=== PATIENT | female | born 1960 | race Two or more races ===

== ENCOUNTER → 2024-02-28 | Outpatient (CLI) | payer BC, SELFPAY ==
[2024-02-28 09:33] LABS: Misc Send Out* See Sep Rpt
== END | disposition home or self-care (01) ==
PROVIDERS: PCP Family Medicine; Referring Provider Internal Medicine Hematology & Oncology; Visit Provider Internal Medicine Hematology & Oncology
DX: C50.911 Malignant neoplasm of unspecified site of right female breast (principal)

== ENCOUNTER 2024-07-17 11:31 | Outpatient (RCR) | payer BC, SELFPAY ==
--- NOTE | 2024-07-18 05:40 | CTCFLWUP_ITS ---
Patient: MARY LIU : 1960 Page 5 of 6 FOLLOW UP NOTE DATE OF SERVICE: 07/17/2024 NAME: MARY LIU ACCOUNT: [id number] : 1960 AGE: 64 INTERVAL HISTORY: Patient is doing well. She is here to discuss her antiendocrine therapy. ONCOLOGY HISTORY: DIAGNOSIS: Right breast invasive ductal carcinoma ER/MI positive HER2 negative DATE OF DIAGNOSIS: 01/22/2024 STAGE/TNM: T2 N0 M0 stage I right breast invasive ductal carcinoma Oncotype Dx 6 TREATMENT HISTORY: Care?Plan Start?Date Cycle Day Intent HISTORY OF PRESENT ILLNESS: Mary Liu is a 64-year-old ENG speaking Other female with history of obesity as well as depre ssion has the following oncology history. August 2023: Patient felt a lump in the right breast. 09/28/2023: Right breast ultrasound? 09/28/2023: Ms. Liu had bilateral diagnostic mammograms done 01/22/2024: Ms. Liu had 2 nodules biopsied from the right breast with ultrasound guidance Lymphovascular invasion: not seen Pathologic TNM classi?cation: pT2 Tumor >20 mm but [address] dimension psnNO No regional lymph node metastasis identi?ed Breast prognostic panel results: Estro gen receptor: positive, 3+. >95? 9 Progesterone receptor: positive, 2+, HER-Zlneu Inmunohistochemistr y Result: 2+, equivocal (Her2-Low). FISH [id number] is nega?ve. Ki-67: 10% 03/19/2024: Ms. 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 Tobacco?Use:?Denies ETOH?Use:?Denies Drug?Note:?Denies Social?History?Note:?Lives?with? 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 control medication x 10 yrs :?0 Live?Births:?0 MEDICATIONS: 1. Arimidex - 1 mg 1 tab Daily 2. sertraline - 50 mg 1 tab Daily Medications Last Reconciled by Marisabel Barrett MA on 07/17/2024 ALLERGIES: Bee stings REVIEW OF SYSTEMS: A complete 14-point review of systems was performed and is negative except as noted in interval histo ry. PHYSICAL EXAMINATION: VITAL SIGNS: PAIN: 0 - No pain ECOG Performance Status: 0 - Asymptomatic and fully active GENERAL APPEARANCE: Appears well, in no apparent distress, appropriately interactive. HEENT: Normocephalic, no temporal wasting, normal conjunctiva, no scleral icterus, normal hearing, li ps without lesions, neck normal range of motion. CARDIOVASCULAR: Not assessed. PULMONARY: Normal respiratory effort, no respiratory distress or use of accessory muscles, speaking i n full sentences, no tachypnea. EXTREMITIES: No pedal edema or cyanosis. SKIN: Normal skin appearance. NEUROLOGIC: Alert and oriented x4. PSHYCHIATRIC: Appropriate affect, mood normal, behavior normal, intact thought and speech. LABORATORY DATA: I have personally reviewed and interpreted each of Ms. Liu?s relevant lab tests, abnormal fin dings are below: Date ASSESSMENT/PLAN: #1 stage IIa (pT2 snN0, M0) ER positive, MI positive HER2/yanick IHC 2+, equal vocal, HER2 2+ on IHC neg ative by FISH single focus moderately differentiated invasive ductal carcinoma of the right breast. S/p simple mastectomy and sentinel lymph node biopsy on 03/19/2024 ER positive, MI positive, HER2/yanick negative, Ki-67 low (10%) low-grade invasive ductal carcinoma of t he right breast. S/p ultrasound-guided biopsy (01/22/2024) Strong family history of breast cancers. Patient's 2 sisters had breast cancers. Oncotype DX shows score of 6. Distance recurrence at 9 years with antiendocrine therapy alone is 3% and benefit of chemotherapy is less than 1% BRCA 1 and 2 as well as [facility] cancer test. --Results are negative for any hereditary cancer s Other chronic condition reviewed during this visit and patient advised to follow-up with the primary care obesity Depression CBC and CMP ordered for today CBC CMP RETURN TO CLINIC: 6 months BILLING AND COMPLIANCE: I reviewed external records from providers outside my specialty as summarized above. I spent a total of 50 minutes on this patient?s care on the day of their visit excluding time spent related to any bi lled procedures. This time includes time spent with the patient as well as time spent documenting in the medical record, reviewing patients records and tests, obtaining history, placing orders, communi cating with other healthcare professionals, counseling the patient, family or caregiver, and/or care coordination for the diagnoses above. Electronically Signed by: Didier Morales MD T: 5:38 AM CC: PCP: Blaine Lee Referring: Blaine Lee This document was completed utilizing speech recognition software. Grammatical errors, random word in sertions, pronoun errors, and incomplete sentences are an occasional consequence of this system due t o software limitations, ambient noise, and hardware issues. Any formal questions or concerns about th e content, text or information contained within the body of this dictation should be directly address ed to the provider for clarification.
== END 2024-07-26 23:59 | disposition home or self-care (01) ==
LOC: SCTC 11:31
PROVIDERS: PCP Family Medicine; Referring Provider Family Medicine; Visit Provider Internal Medicine Hematology & Oncology
DX: C50.111 Malignant neoplasm of central portion of right female breast (principal); Z17.0 Estrogen receptor positive status [ER+]; Z17.21 Progesterone receptor positive status; Z17.32 Human epidermal growth factor receptor 2 negative status; Z90.11 Acquired absence of right breast and nipple; Z80.3 Family history of malignant neoplasm of breast; Z79.811 Long term (current) use of aromatase inhibitors
CPT/HCPCS: 99212; G0463

== ENCOUNTER → 2024-08-16 | Outpatient (CLI) | payer BC, SELFPAY ==
[2024-08-16 11:04] LABS: Collection Type, Urine Clean Catch; WBC,Urine 0 /hpf (0-5)
[2024-08-16 11:20] LABS: Basophils % (Auto) 0 % (0-2.5); Eosinophils # (Auto) 0.1 Thou/mm3 (0.0-0.5); Eosinophils % (Auto) 1 % (0-10); Hematocrit 41.7 % (36.0-46.0); Hemoglobin 13.5 g/dL (12.0-16.0); Immature Granulocytes % (Auto) 0 % (0-0); Immature Granulocytes Auto 0.02 Thou/mm3 (0.00-0.00); Lymphocytes % (Auto) 24 % (10-50); Mean Corpuscular HGB Conc 32.4 g/dl (31.0-37.0); Mean Corpuscular Hemoglobin 26.5 pg (25.0-35.0); Mean Corpuscular Volume 82 fL (80-100); Monocytes # (Auto) 0.4 Thou/mm3 (0.0-0.8); Monocytes % (Auto) 5 % (0-12); Neutrophils # (Auto) 5.6 Thou/mm3 (1.8-7.7); Neutrophils % (Auto) 69 % (37-80); Nucleated Red Blood Cell % 0 /100 WBC (0); Platelet Count 198 Thou/mm3 (140-440); Red Blood Count 5.09 Miln/mm3 (4.00-5.20); White Blood Count 8.1 Thou/mm3 (3.6-11.0)
[2024-08-16 11:33] LABS: Glucose Estimated Average 137 mg/dL (80-131); Hemoglobin A1C 6.4 % Hgb (4.8-6.0)
[2024-08-16 11:40] LABS: Alanine Aminotransferase 15 U/L (10-49); Albumin/Globulin Ratio 1.2 (1.2-2.2); Alkaline Phosphatase 82 U/L (46-116); Anion Gap 8 (7-16); Aspartate Amino Transferase 14 U/L (0-34); BUN/Creatinine Ratio 26 Ratio (12-20); Bilirubin,Total 0.4 mg/dL (0.3-1.2); Blood Urea Nitrogen 18 mg/dL (9-23); Calcium 9.5 mg/dL (8.3-10.6); Calcium (Corrected) 9.5 mg/dL (8.5-10.1); Carbon Dioxide 30.5 mMol/L (20.0-31.0); Cardiac Risk Estimate 4.1 RATIO (3.7-5.6); Chloride 101 mMol/L (98-107); Cholesterol 162 mg/dL (132-200); Creatinine (Component) 0.7 mg/dL (0.6-1.3); Free T4 (Free Thyroxine) 0.97 ng/dL (0.89-1.76); Globulin 3.3 gm/dL (2.3-3.5); Glucose 113 mg/dL (74-106); HDL Cholesterol 40 mg/dL (40-60); LDL Cholesterol,Calculated 88 mg/dL (0-130); Osmolality,Calculated 280 (275-295); Potassium 4.4 mMol/L (3.4-5.1); Sodium 139 mMol/L (136-145); Thyroid Stimulating Hormone 1.36 uIU/mL (0.55-4.78); Total Protein 7.3 gm/dL (5.7-8.2); Triglycerides 172 mg/dL (30-150); eGFR > 60 See Note
[2024-08-16 11:44] LABS: Vitamin D 25 Hydroxy Total 50.9 ng/mL (7.3-40.2)
[2024-08-16 11:46] LABS: Bilirubin,Urine Negative (Negative); Blood,Urine Trace (Negative); Clarity,Urine Clear (Clear/Hazy); Color,Urine Lt-Yellow (Lt Yel-Yel); Culture Indicated,Urine Not Indicated; Glucose, Urine Negative (Negative); Ketones,Urine Negative (Negative); Leukocyte Esterase,Urine Negative (Negative); Nitrite,Urine Negative (Negative); Protein,Urine Negative (Neg - Trace); RBC,Urine 1 /hpf (0-3); Specific Gravity,Urine 1.024 (1.001-1.035); Squamous Epithelial Cell,Urine 5 /hpf (0-5); Urobilinogen,Urine Negative mg/dL (0.0-1.0)
[2024-08-19 07:04] LABS: Thyroid Peroxidase Antibodies* <1 IU/mL (<9)
== END | disposition home or self-care (01) ==
LOC: COPL 10:27
PROVIDERS: PCP Nurse Practitioner Family; Referring Provider Nurse Practitioner Family; Visit Provider Nurse Practitioner Family
DX: Z00.00 Encounter for general adult medical examination without abnormal findings (principal); R53.83 Other fatigue; E03.9 Hypothyroidism, unspecified; E55.9 Vitamin D deficiency, unspecified; E66.812 Obesity, class 2; I10 Essential (primary) hypertension; Z13.89 Encounter for screening for other disorder; Z13.1 Encounter for screening for diabetes mellitus; Z13.0 Encounter for screening for diseases of the blood and blood-forming organs and certain disorders involving the immune mechanism; Z13.220 Encounter for screening for lipoid disorders; Z13.29 Encounter for screening for other suspected endocrine disorder; E78.5 Hyperlipidemia, unspecified
CPT/HCPCS: 36415; 80053; 80061; 81001; 82306; 83036; 84439; 84443; 85025; 86376

== ENCOUNTER → 2024-08-20 | Outpatient (CLI) | payer BC, SELFPAY ==
--- NOTE | 2024-08-20 14:00 | XR_ITS ---
Examination: Bone densitometry Date and time of exam:August 20, 2024 1412 hrs. Indications: Hysterectomy age 44 vitamin D 2 years Technique: Lumbar spine and hip total bone mineralization values of an calculated. Peak reference and age match control results have been displayed. Findings: Lumbar spine total bone mineralization is1.177 gm/cm2. This is 1.2 standard deviations above peak reference. This is 2.9 standard deviations above age-matched controls. Hip total bone mineralization is 1.037 gm/cm2 This is 0.6 standard deviations above peak reference. This is 1.6 standard deviations above age-matched controls Impression: There is normal mineralization based on lumbar spine measurements. There is normal mineralization based on hip measurements
== END | disposition home or self-care (01) ==
LOC: CDIM 13:43
PROVIDERS: PCP Nurse Practitioner Family; Referring Provider Internal Medicine Hematology & Oncology; Visit Provider Internal Medicine Hematology & Oncology
DX: C50.911 Malignant neoplasm of unspecified site of right female breast (principal)
CPT/HCPCS: 77080

== ENCOUNTER → 2024-08-22 | Outpatient (CLI) | payer BC, SELFPAY ==
--- NOTE | 2024-08-22 | XR_ITS ---
Examination: Screening digital mammography, unilateral left Computer aided detection 3-D breast Tomosynthesis, unilateral Date and time of exam: 08/22/2024 2, 10:41 AM Comparisons: 09/28/2023 Indications: Screening Technique: Nonmagnified MLO, CC views of the left breast to been obtained, reconstructed from 3-D Tomosynthesis images. R2 computer aided detection program utilized for evaluation of suspicious masses and/or abnormal calcifications. 3-D Tomosynthesis images obtained. Findings: The breasts are heterogeneously dense, which may obscure small masses. No evidence of abnormal masses or suspicious calcifications. Impression: BI-RADS category 1: Negative findings (within normal) Recommend 1 year follow-up mammogram
== END | disposition home or self-care (01) ==
LOC: CDIM 10:21
PROVIDERS: Referring Provider Internal Medicine Hematology & Oncology; Visit Provider Internal Medicine Hematology & Oncology
DX: Z12.31 Encounter for screening mammogram for malignant neoplasm of breast (principal); R92.313 Mammographic fatty tissue density, bilateral breasts; C50.911 Malignant neoplasm of unspecified site of right female breast
CPT/HCPCS: 77063; 77067

== ENCOUNTER 2025-01-14 11:40 | Outpatient (RCR) | payer BC, SELFPAY ==
--- NOTE | 2025-01-20 04:30 | CTCFLWUP_ITS ---
Patient: MARY LIU : 1960 Page 5 of 7 FOLLOW UP NOTE DATE OF SERVICE: 01/14/2025 NAME: MARY LIU ACCOUNT: [id number] : 1960 AGE: 64 INTERVAL HISTORY: Patient doing well since last visit have no new complaints ONCOLOGY HISTORY: DIAGNOSIS: Right breast invasive ductal carcinoma ER/MO positive HER2 negative DATE OF DIAGNOSIS: 01/22/2024 STAGE/TNM: T2 N0 M0 stage I right breast invasive ductal carcinoma Oncotype Dx August 22, 2024 bone density normal/mammogram normal TREATMENT HISTORY: Care?Plan Start?Date Cycle Day Intent HISTORY OF PRESENT ILLNESS: Mary Liu is a 64-year-old ENG speaking Other female with history of obesity as well as depression has the following oncology history. August 2023: Patient felt a lump in the right breast. 09/28/2023: Right breast ultrasound? 09/28/2023: Ms. Liu had bilateral diagnostic mammograms done 01/22/2024: Ms. Liu had 2 nodules biopsied from the right breast with ultrasound guidance Lymphovascular invasion: not seen Pathologic TNM classi?cation: pT2 Tumor >20 mm but 550 mm in greatest dimension psnNO No regional lymph node metastasis identi?ed Breast prognostic panel results: Estrogen receptor: positive, 3+. >95? 9 Progesterone receptor: positive, 2+, HER-Zlneu Inmunohistochemistry Result: 2+, equivocal (Her2-Low). FISH Cxt2mis is nega?ve. Ki-67: 10% 03/19/2024: Ms. 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 Tobacco?Use:?Denies ETOH?Use:?Denies Drug?Note:?Denies Social?History?Note:?Lives?with? [employer]ET[employer] HISTORY: Menarche?-?Age:?11 Menopause:?25?yrs Hormone?Use:? control medication x 10 yrs :?0 Live?Births:?0 MEDICATIONS: 1. anastrozole - 1 mg 1 tab Daily 2. Arimidex - 1 mg 1 tab Daily 3. sertraline - 50 mg 1 tab Daily Medications Last Reconciled by Marisabel Barrett MA on 01/14/2025 ALLERGIES: Bee stings REVIEW OF SYSTEMS: A complete 14-point review of systems was performed and is negative except as noted in interval history. PHYSICAL EXAMINATION: VITAL SIGNS: Temperature?98, B/P?143/70, Oxygen?Saturation?94% Weight?248?lbs PAIN: 4 - Moderate pain ECOG Performance Status: 0 - Asymptomatic and fully active GENERAL APPEARANCE: Appears well, in no apparent distress, appropriately interactive. HEENT: Normocephalic, no temporal wasting, normal conjunctiva, no scleral icterus, normal hearing, lips without lesions, neck normal range of motion. CARDIOVASCULAR: Not assessed. PULMONARY: Normal respiratory effort, no respiratory distress or use of accessory muscles, speaking in full sentences, no tachypnea. EXTREMITIES: No pedal edema or cyanosis. SKIN: Normal skin appearance. NEUROLOGIC: Alert and oriented x4. PSHYCHIATRIC: Appropriate affect, mood normal, behavior normal, intact thought and speech. LABORATORY DATA: I have personally reviewed and interpreted each of the patient?s relevant lab tests, abnormal findings are below: Date 08/16/24 ??WHITE?BLOOD?COUNT?(Thou/mm3) 8.1 ??RED?BLOOD?COUNT?(Miln/mm3) 5.09 ??HEMOGLOBIN?(gm/dl) 13.5 ??HEMATOCRIT?(%) 41.7 ??PLATELET?COUNT?(Thou/mm3) 198 ??NEUTROPHILS?%,?AUTO?(%) 69 ??LYMPH?%,?AUTO?(%) 24 ??NEUTROPHILS,?AUTO?(Thou/mm3) 5.6 ??GLUCOSE,RANDOM?(mg/dL) 113?H ??BLOOD?UREA?NITROGEN?(mg/dL) 18 ??CREATININE?(mg/dL) 0.70 ??SODIUM?(mmol/L) 139 ??POTASSIUM?(mmol/L) 4.4 ??CHLORIDE?(mmol/L) 101 ??CrCl?(CandG)?(ml/min) 98.44 ??AST/SGOT?(Unit/L) 14 ??ALT/SGPT?(Unit/L) 15 ??ALKALINE?PHOSPHATASE?(Unit/L) 82 ??BILIRUBIN,?TOTAL?(mg/dL) 0.4 ??PROTEIN?TOTAL?(gm/dl) 7.3 ??ALBUMIN,?SERUM?(gm/dl) 4.0 ??GLOBULIN?(gm/dl) 3.3 ??ALBUMIN/GLOBULIN?RATIO 1.2 ??CALCIUM,?SERUM?(mg/dL) 9.5 ??CALCIUM?SERUM?(CORRECTED)?(mg/dL) 9.5 ASSESSMENT/PLAN: #1 stage IIa (pT2 snN0, M0) ER positive, MO positive HER2/yanick IHC 2+, equal vocal, HER2 2+ on IHC negative by FISH single focus moderately differentiated invasive ductal carcinoma of the right breast. S/p simple mastectomy and sentinel lymph node biopsy on 03/19/2024 ER positive, MO positive, HER2/yanick negative, Ki-67 low (10%) low-grade invasive ductal carcinoma of the right breast. S/p ultrasound-guided biopsy (01/22/2024) Strong family history of breast cancers. Patient's 2 sisters had breast cancers. Oncotype DX shows score of 6. Distance recurrence at 9 years with antiendocrine therapy alone is 3% and benefit of chemotherapy is less than 1% BRCA 1 and 2 [facility]. --Results are negative for any hereditary cancers Other chronic condition reviewed during this visit and patient advised to follow-up with the primary care obesity Depression CBC and CMP ordered for today CBC CMP ORDERS: Order # Description [id number] Comprehensive Metabolic Panel - 12 + CBC with Auto Diff + MD Follow Up 6 Month + RETURN TO CLINIC: I reviewed the diagnosis, prognosis, and recommended treatment/procedure options with the patient (and/or their legal automobile rental representative), including the potential benefits, risks, side effects and alternative therapies. We also discussed the option of no treatment and the possibility of clinical trial participation, if applicable. All questions were addressed, and they demonstrated understanding. They provided informed consent to proceed with the proposed plan of care. BILLING AND COMPLIANCE: I reviewed external records from providers outside my specialty as summarized above. I spent a total of 50 minutes on this patient?s care on the day of their visit excluding time spent related to any billed procedures. This time includes time spent with the patient as well as time spent documenting in the medical record, reviewing patients records and tests, obtaining history, placing orders, communicating with other healthcare professionals, counseling the patient, family or caregiver, and/or care coordination for the diagnoses above. Electronically Signed by: Didier Morales MD T: 4:28 AM CC: PCP: Eden Marley Referring: Eden Marley This document was completed utilizing speech recognition software. Grammatical errors, random word insertions, pronoun errors, and incomplete sentences are an occasional consequence of this system due to software limitations, ambient noise, and hardware issues. Any formal questions or concerns about the content, text or information contained within the body of this dictation should be directly addressed to the provider for clarification.
== END 2025-01-23 23:59 | disposition home or self-care (01) ==
LOC: SCTC 11:40
PROVIDERS: PCP Nurse Practitioner Family; Referring Provider Nurse Practitioner Family; Visit Provider Internal Medicine Hematology & Oncology
DX: C50.111 Malignant neoplasm of central portion of right female breast (principal); Z17.0 Estrogen receptor positive status [ER+]; Z17.21 Progesterone receptor positive status; Z17.32 Human epidermal growth factor receptor 2 negative status; Z90.11 Acquired absence of right breast and nipple; Z80.3 Family history of malignant neoplasm of breast; Z79.811 Long term (current) use of aromatase inhibitors
CPT/HCPCS: 99212; G0463

== ENCOUNTER → 2025-03-06 | Outpatient (CLI) | payer BC, SELFPAY ==
[2025-03-06 11:14] LABS: Basophils # (Auto) 0.0 Thou/mm3 (0.0-0.2); Basophils % (Auto) 0 % (0-2.5); Eosinophils # (Auto) 0.1 Thou/mm3 (0.0-0.5); Eosinophils % (Auto) 1 % (0-10); Hematocrit 41.4 % (36.0-46.0); Hemoglobin 13.7 g/dL (12.0-16.0); Immature Granulocytes Auto 0.08 Thou/mm3 (0.00-0.00); Lymphocytes # (Auto) 2.3 Thou/mm3 (1.0-4.8); Lymphocytes % (Auto) 25 % (10-50); Mean Corpuscular HGB Conc 33.1 g/dl (31.0-37.0); Mean Corpuscular Hemoglobin 28.0 pg (25.0-35.0); Mean Corpuscular Volume 85 fL (80-100); Monocytes # (Auto) 0.6 Thou/mm3 (0.0-0.8); Monocytes % (Auto) 6 % (0-12); Neutrophils # (Auto) 6.1 Thou/mm3 (1.8-7.7); Neutrophils % (Auto) 66 % (37-80); Nucleated Red Blood Cell # 0.00 Thou/mm3 (0.00-0.00); Nucleated Red Blood Cell % 0 /100 WBC (0); Platelet Count 202 Thou/mm3 (140-440); RDW Standard Deviation 46.5 fL (36.4-46.3); Red Blood Count 4.89 Miln/mm3 (4.00-5.20); White Blood Count 9.2 Thou/mm3 (3.6-11.0)
[2025-03-06 11:31] LABS: Alanine Aminotransferase 21 U/L (10-49); Albumin, Serum 4.6 gm/dL (3.4-4.8); Albumin/Globulin Ratio 1.5 (1.2-2.2); Alkaline Phosphatase 76 U/L (46-116); Anion Gap 10 (7-16); Aspartate Amino Transferase 20 U/L (0-34); BUN/Creatinine Ratio 24 Ratio (12-20); Bilirubin,Total 0.4 mg/dL (0.3-1.2); Blood Urea Nitrogen 17 mg/dL (9-23); Calcium 10.0 mg/dL (8.3-10.6); Calcium (Corrected) 10.0 mg/dL (8.5-10.1); Carbon Dioxide 27.1 mMol/L (20.0-31.0); Chloride 102 mMol/L (98-107); Creatinine (Component) 0.7 mg/dL (0.6-1.3); Globulin 3.1 gm/dL (2.3-3.5); Glucose 106 mg/dL (74-106); Osmolality,Calculated 279 (275-295); Potassium 4.1 mMol/L (3.4-5.1); Sodium 139 mMol/L (136-145); Total Protein 7.7 gm/dL (5.7-8.2); eGFR > 60 See Note
== END | disposition home or self-care (01) ==
LOC: SCTO 10:26
PROVIDERS: PCP Nurse Practitioner Family; Referring Provider Internal Medicine Hematology & Oncology; Visit Provider Internal Medicine Hematology & Oncology
DX: C50.911 Malignant neoplasm of unspecified site of right female breast (principal)
CPT/HCPCS: 36415; 80053; 85025